=== PATIENT | female | born 1965 | race Caucasian/White ===

== ENCOUNTER → 2016-06-17 | Outpatient (CLI) | payer BC ==
[2016-06-17 13:50] LABS: BASOPHILS # (AUTO) 0.07 10*3/UL; BASOPHILS % (AUTO) 0.9 % (0-1); HEMATOCRIT 45.4 % (37.0-47.0); HEMOGLOBIN 15.4 g/dL (12.0-16.0); IMM GRAN % (AUTO) 0.1 % (0-5); IMM GRAN# (AUTO) 0.01 10*3/UL; LYMPHOCYTES # (AUTO) 2.03 10*3/uL; MEAN CORPUSCULAR HEMOGLOBIN 31.6 PG (27-31); MEAN CORPUSCULAR HGB CONC 33.9 g/dL (33-37); NEUTROPHILS # (AUTO) 4.92 10*3/UL; RDW COEFFICIENT OF VARIATION 13.3 % (11.5-14.5); RED BLOOD COUNT 4.87 10^6/uL (4.20-5.40); WHITE BLOOD COUNT 7.81 10^3/uL (4.8-10.8)
[2016-06-17 14:18] LABS: PLATELET MORPHOLOGY COMMENT NORMAL MORPHOLOGY (NORM)
[2016-06-17 16:48] LABS: FREE T4 (FREE THYROXINE) 1.21 ng/dL (0.93-1.71)
[2016-06-17 17:13] LABS: ASPARTATE AMINO TRANSFERASE 28 IU/L (8-39); BILIRUBIN,TOTAL 0.9 mg/dL (0.3-1.2); BLOOD UREA NITROGEN 13 mg/dL (7-22); BUN/CREATININE RATIO 14.44 (6-20); CALCIUM 9.4 mg/dL (8.7-10.7); CHLORIDE 106 meq/L (98-112); CREATININE 0.9 mg/dL (0.50-1.20); EST GLOMERULAR FILTRATION > 60 (>60 ml/min/1.73m(2)); GLUCOSE 74 mg/dL (78-110); POTASSIUM 4.2 meq/L (3.8-5.2); SODIUM 141 meq/L (135-145); TOTAL PROTEIN 7.5 g/dL (6.1-8.0)
== END ==
LOC: MOB LAB 12:29
PROVIDERS: ATTEND Obstetrics & Gynecology
DX: R53.83 Other fatigue (principal); F32.9 Major depressive disorder, single episode, unspecified
CPT/HCPCS: 36415; 80053; 82306; 84439; 84443; 85025

== ENCOUNTER → 2016-06-24 | Outpatient (CLI) | payer BC ==
--- NOTE | 2016-06-24 21:07 | DI ---
PELVIC ULTRASOUND, 06/24/2016 8:44 AM Clinical History: Simple endometrial hyperplasia without atypia. Previous Exam: 09/28/2015. Technique: Transabdominal and transvaginal scans are performed. The uterus measures approximately 50 x 65 x 9 mm. The central uterine stripe measures 5 mm. The uteru s itself appears normal. There is a 10 x 10 x 15 mm simple cyst of the right ovary. Both ovaries are otherwise normal and demonstrate flow. There are no fluid collections or masses. Readin. The uterus is unremarkable. The central uterine stripe measures 5 mm. 2. There is a 10 x 10 x 15 mm simple cyst of the right ovary. The ovaries are otherwise normal.
== END ==
LOC: US 08:38
PROVIDERS: ATTEND Obstetrics & Gynecology
DX: N85.01 Benign endometrial hyperplasia (principal); N83.201 Unspecified ovarian cyst, right side
CPT/HCPCS: 76830; 76856

== ENCOUNTER → 2016-08-23 | Outpatient (CLI) | payer BC ==
--- NOTE | 2016-08-23 19:40 | DI ---
XR SHOULDER MIN 2VW,08/23/2016 11:15 AM: Clinical History: Right shoulder pain of unspecified chronicity. Previous Exam: None at this facility. Findings: 4 views of the right shoulder are obtained, and demonstrate anatomic alignment without fractures. The adjacent right lung and chest wall are unremarkable. Surrounding soft tissues are also unremarkable. Impression: Normal right shoulder.
== END ==
LOC: ORTHO 11:17
PROVIDERS: ATTEND Orthopaedic Surgery
DX: M25.511 Pain in right shoulder (principal); M75.21 Bicipital tendinitis, right shoulder
CPT/HCPCS: 73030

== ENCOUNTER → 2016-11-06 | Outpatient (CLI) | payer BC ==
--- NOTE | 2016-11-06 15:32 | DI ---
PELVIC ULTRASOUND, 11/06/2016 1:58 PM Clinical History: Right ovarian cyst. Previous Exam: 06/24/2016. Technique: Transvaginal scans are performed. The uterus measures 45 x 55 x 70 mm. Multiple slightly hyperechoic small nodules are visualized in th e uterus consistent with small fibroids. These range in size between 5-10 mm in diameter. There is on e large isoechoic nodule that measures about 25 mm in diameter on the anterior wall of the body of th e uterus. All of these would be consistent with small uterine fibroids. The central uterine stripe me asures 3 mm. The right and left ovaries are visualized and are normal and show normal flow. The cyst of the right ovary seen on the previous study is no longer visible. There are no fluid collections or masses. Readin. The right ovarian cyst is no longer visible. Both ovaries are normal. 2. The uterus is normal in size with a normal central uterine stripe. Multiple slightly hyperechoic lesions measuring less than 10 mm and one isoechoic lesion measuring 25 mm in diameter are present in the myometrium and all are consistent with small fibroids.
== END ==
LOC: US 13:50
PROVIDERS: ATTEND Obstetrics & Gynecology
DX: N83.201 Unspecified ovarian cyst, right side (principal); N85.01 Benign endometrial hyperplasia; D25.9 Leiomyoma of uterus, unspecified
CPT/HCPCS: 76830